=== PATIENT | male | born 1970 | race Caucasian/White ===

== ENCOUNTER 2017-04-21 11:14 | Emergency (ER) | payer MEDICAID ==
[~2017-04-21] VITALS: Wt 90.9 kg
[2017-04-21] MEDS ORDERED: ONDANSETRON (ODT) 4 MG TAB ODT STA ×2 (12:48→14:58)
[2017-04-21] MEDS ORDERED: HYDROCODONE/APAP (5/325) TAB PO ONE (13:00)
--- NOTE | 2017-04-21 14:06 | RADRPT ---
PROCEDURE: CT cervical spine without contrast CLINICAL INDICATION: Trauma . Collision during soccer. TECHNIQUE: CT scan of the cervical spine was performed . No IV contrast was administered. Jose l and sagittal reformatted images were obtained from the axial source images. Images were reviewed o n a high-resolution PACS workstation. The calculated radiation dose measures 567.43 mGy centimeters . The CTDI measures 22.32 mGy. One or more of the following dose reduction techniques were used: - Automated exposure control. - Adjustment of the mA and/or kV according to patient size . - Use of iterative reconstruction technique. COMPARISON: None available FINDINGS: There is reversal of the normal cervical lordosis. Alignment remains intact. No acute fracture or dislocation is seen. The vertebral body heights and intervertebral disk heights are all well preser fransisco. Posterior elements structures are equally unremarkable. The paraspinous soft tissues are unrem arkable. There is a small, dystrophic ossification versus ossicle between the talus and clivus. No mass, hematoma, or other soft tissue abnormality is seen. IMPRESSION: 1. Reversal of the normal cervical lordosis related to paraspinal muscle spasm or position. 2. No acute vertebral body fracture or traumatic subluxation. RPTAT: PP .Chaitanya Greenfield MD, Date Time Electronically viewed and signed by .Chaitanya Greenfield MD, MD on 04/21/2017 14:05 .d/
--- NOTE | 2017-04-21 14:07 | RADRPT ---
PROCEDURE: CT Brain without. CLINICAL INDICATION: Trauma. Soccer collision TECHNIQUE: A CT of the brain was performed utilizing axial sections from the skull base through th e vertex without contrast. The scan was reviewed in soft tissue brain and high frequency resolution bone algorithm windows. Images were reviewed on a high-resolution PACS workstation. images. The c alculated radiation dose measures 720.23 mGy centimeters. The CTDI measures 42.81 mGy. One or more of the following dose reduction techniques were used: - Automated exposure control. - Adjustment of the mA and/or kV according to patient size . - Use of iterative reconstruction technique. Images were reviewed on a high-resolution PACS workstation COMPARISON: None available FINDINGS: The ventricles and sulci are symmetric and normal in size and morphology. There is no evidence of i ntracranial hemorrhage, mass effect, edema or midline shift. No abnormal intra-axial or extra-axial fluid collections are seen. The density of the brain is normal and the weldon/white matter different iation is well preserved. Brainstem and posterior fossa structures are equally unremarkable. The o sseous structures and visualized paranasal sinuses are unremarkable. There is mild right periorbital soft tissue swelling. IMPRESSION: 1. No acute intracranial findings. 2. Mild right periorbital soft tissue swelling. RPTAT: PP .Chaitanya Greenfield MD, Date Time Electronically viewed and signed by .Chaitanya Greenfield MD, MD on 04/21/2017 14:07 .d/
--- NOTE | 2017-04-21 14:09 | ERD ---
ER Documentation Chief Complaint Date/Time DATE: 04/21/17 TIME: 14:08 Chief Complaint hit back of head during soccer game, no ko HPI This 46-year-old male who presents the emergency department today with his friend for complaints of headache and neck pain after being kneed in the back of the head during a soccer game earlier today. Patient states that he lost consciousness for short period of time. States he has a headache, dizziness, blurred vision and some nausea. Denies any previous head trauma. States he did not return to the game. ROS All systems reviewed and are negative except as per history of present illness. Medications Home Meds Active Scripts Cyclobenzaprine Hcl* (Cyclobenzaprine Hcl*) 10 Mg Tablet, 10 MG PO QHS, #7 TAB Prov:LEDY HIGUERA-C 04/21/17 Ondansetron Hcl* (Zofran*) 4 Mg Tablet, 4 MG PO Q6H for NAUSEA AND/OR VOMITING, #30 TAB Prov:LEDY HIGUERA-C 04/21/17 Acetaminophen* (Tylophen*) 500 Mg Capsule, 1 CAP PO Q6H Y for PAIN AND OR ELEVATED TEMP, #30 CAP Prov:LEDY HIGUERA-C 04/21/17 Hydrocodone/Acetaminophen (Gwinn 5-325 Tablet) 1 Each Tablet, 1 TAB PO Q6H Y for PAIN, #15 TAB Prov:LEDY HIGUERA PA-C 04/21/17 Allergies Allergies: Coded Allergies: No Known Allergy (Unverified , 04/21/17) PMhx/Soc Medical and Surgical Hx: pt denies Medical Hx, pt denies Surgical Hx Hx Alcohol Use: Yes Hx Substance Use: No Hx Tobacco Use: No Smoking Status: Never smoker Physical Exam Vitals Vital Signs Date Time Temp Pulse Resp B/P Pulse Ox O2 Delivery O2 Flow Rate FiO2 04/21/17 16:33 95.6 61 18 136/80 99 Room Air 04/21/17 11:18 97.3 74 20 130/83 99 Physical Exam Const: No acute distress Head: Large hematoma posterior aspect left side of head. No lacerations. Eyes: Normal Conjunctiva. PERRLA. EOM intact ENT: Normal External Ears, Nose and Mouth. No epistaxis. No hemotympanum. Nontender orbits. Neck: Full range of motion..~ No meningismus. Mild midline tenderness with evidence of soccer cleat kimo Resp: Clear to auscultation bilaterally Cardio: Regular rate and rhythm, no murmurs Skin: No petechiae or rashes Back: No midline or flank tenderness Neur: Awake and alert Psych: Normal Mood and Affect Results 24 hrs Current Medications Medications (Trade) Dose Ordered Sig/Khanh Route PRN Reason Start Time Stop Time Status Last Admin Dose Admin Ondansetron HCl (Zofran Odt) 4 mg ONCE STAT ODT 04/21/17 12:48 04/21/17 12:51 DC 04/21/17 13:01 Acetaminophen/ Hydrocodone Bitart (Gwinn (5/325)) 1 tab ONCE ONCE PO 04/21/17 13:00 04/21/17 13:01 DC 04/21/17 13:01 Acetaminophen (Tylenol Tab) 500 mg ONCE STAT PO 04/21/17 14:58 04/21/17 14:59 DC 04/21/17 15:03 Ondansetron HCl (Zofran Odt) 4 mg ONCE STAT ODT 04/21/17 14:58 04/21/17 14:59 DC 04/21/17 15:03 DIAGNOSTIC IMAGING REPORT Patient: CHOCO GREEN : 1970 Age: 46 Sex: M MR #: [id number] DOS: 04/21/17 0000 Ordering MD: LEDY HIGUERA PA-C Location: [facility] Room/Bed: PROCEDURE: CT cervical spine without contrast CLINICAL INDICATION: Trauma . Collision during soccer. TECHNIQUE: CT scan of the cervical spine was performed . No IV contrast was administered. Coronal and sagittal reformatted images were obtained from the axial source images. Images were reviewed on a high-resolution PACS workstation. The calculated radiation dose measures 567.43 mGy centimeters. The CTDI measures 22.32 mGy. One or more of the following dose reduction techniques were used: - Automated exposure control. - Adjustment of the mA and/or kV according to patient size . - Use of iterative reconstruction technique. COMPARISON: None available FINDINGS: There is reversal of the normal cervical lordosis. Alignment remains intact. No acute fracture or dislocation is seen. The vertebral body heights and intervertebral disk heights are all well preserved. Posterior elements structures are equally unremarkable. The paraspinous soft tissues are unremarkable. There is a small, dystrophic ossification versus ossicle between the talus and clivus. No mass, hematoma, or other soft tissue abnormality is seen. IMPRESSION: 1. Reversal of the normal cervical lordosis related to paraspinal muscle spasm or position. 2. No acute vertebral body fracture or traumatic subluxation. RPTAT: PP .Chaitanya Greenfield MD, MD Date Time Electronically viewed and signed by .Chaitanya Greenfield MD, MD on 04/21/2017 14:05 .d/ CC: LEDY HIGUERA PA-C DIAGNOSTIC IMAGING REPORT Patient: CHOCO GREEN : 1970 Age: 46 Sex: M MR #: [id number] DOS: 04/21/17 0000 Ordering MD: LEDY HIGUERA PA-C Location: [facility] Room/Bed: PROCEDURE: CT Brain without. CLINICAL INDICATION: Trauma. Soccer collision TECHNIQUE: A CT of the brain was performed utilizing axial sections from the skull base through the vertex without contrast. The scan was reviewed in soft tissue brain and high frequency resolution bone algorithm windows. Images were reviewed on a high-resolution PACS workstation. images. The calculated radiation dose measures 720.23 mGy centimeters. The CTDI measures 42.81 mGy. One or more of the following dose reduction techniques were used: - Automated exposure control. - Adjustment of the mA and/or kV according to patient size . - Use of iterative reconstruction technique. Images were reviewed on a high-resolution PACS workstation COMPARISON: None available FINDINGS: The ventricles and sulci are symmetric and normal in size and morphology. There is no evidence of intracranial hemorrhage, mass effect, edema or midline shift. No abnormal intra-axial or extra-axial fluid collections are seen. The density of the brain is normal and the weldon/white matter differentiation is well preserved. Brainstem and posterior fossa structures are equally unremarkable. The osseous structures and visualized paranasal sinuses are unremarkable. There is mild right periorbital soft tissue swelling. IMPRESSION: 1. No acute intracranial findings. 2. Mild right periorbital soft tissue swelling. RPTAT: PP .Chaitanya Greenfield MD, MD Date Time Electronically viewed and signed by .Chaitanya Greenfield MD, MD on 04/21/2017 14:07 .d/ CC: LEDY HIGUERA PA-C DIAGNOSTIC IMAGING REPORT Patient: CHOCO GREEN : 1970 Age: 46 Sex: M MR #: [id number] DOS: 04/21/17 0000 Ordering MD: LEDY HIGUERA PA-C Location: [facility] Room/Bed: PROCEDURE: CT orbits without IV contrast. CLINICAL INDICATION: Trauma. Possible right periorbital swelling on CT brain.. TECHNIQUE: CT was performed on multislice CT scanner with axial sections through the orbits without contrast. Sagittal and coronal re-formations obtained. Images were reviewed on a high-resolution PACS workstation. DLP: 367.3 mGy-cm. CTDIvol: 29.2 mGy. One or more of the following dose reduction techniques were used: Automated exposure control. Adjustment of the mA and/or kV according to patient size. Use of iterative reconstruction technique. COMPARISON: None available FINDINGS: The orbital bones are intact without evidence of fractures. The remainder of the bones of the face appear intact without evidence of fractures. The paranasal sinuses are clear.. Orbital globes and retro-orbital contents are within normal limits.. Mastoid air cells are clear.. Zygomatic arches are aligned.. Mandible and temporomandibular joints are within normal limits.. Visualized portions of the cervical spine appear intact. Soft tissues of the face are within normal limits.. No significant elvira orbital soft tissue swelling , fluid collection, or hematoma is identified. IMPRESSION: Unremarkable CT of the orbits. RPTAT: QQ .Adiel Johnson MD, MD Date Time Electronically viewed and signed by .Adiel Johnson MD, on 04/21/2017 15:51 .L/ CC: LEDY HIGUERA PA-C Procedures/MDM This a 46-year-old male who presents the emergency department today for an acute head injury and neck pain after sustaining an injury while playing in a soccer game earlier today. Given patient's physical exam and large hematoma I did feel it was necessary to obtain a head CT scan as well as cervical spine films. CT cervical spine shows reversal of the normal cervical lordosis related to paraspinal muscle spasm or position. There is no acute vertebral body fracture or traumatic subluxation. There is no mass, hematoma or other soft tissue abnormality seen Head CT shows no acute intracranial findings. There is mild right periorbital soft tissue swelling. There is no evidence of intracranial hemorrhage, mass- effect, edema or midline shift. Given the patient abnormality of periorbital soft tissue swelling on head CT I did obtain CT of the orbits to rule out a blowout fracture. CT of the orbits noncontrast was unremarkable. There was no significant periorbital soft tissue swelling, fluid collection or hematoma. Mandible and temporomandibular joints are within normal limits. Paranasal sinuses are clear. Patient was given Gwinn and Zofran here in the emergency department pain persisted he was given another dose of Tylenol and Zofran Patient symptoms at this time is consistent with acute head injury and neck injury secondary to soccer injury. Patient will be given a prescription for Gwinn, Zofran, Flexeril, Tylenol for home. He has been instructed to follow-up with a primary care physician. He was instructed in no sports participation or physical activity until cleared by primary care physician or neurology specialist. Patient, friend and daughter understood. Understood At this time the patient is stable for discharge and outpatient management. Patient should follow up with their PCP in the next 1-2 days. Patient was given a list of community resources. They may return to the emergency department sooner for any persistent or worsening of symptoms. Patient understood and agreed with the plan. Departure Diagnosis: Primary Impression: Acute head injury Encounter type: initial encounter Qualified Code: S09.90XA - Acute head injury, initial encounter Additional Impression: Neck injury Encounter type: initial encounter Qualified Code: S19.9XXA - Neck injury, initial encounter Condition: LEDY Trent PA-C Apr 21, 2017 14:09
[2017-04-21] MEDS ORDERED: ACETAMINOPHEN 500 MG TAB PO STA (14:58)
--- NOTE | 2017-04-21 15:52 | RADRPT ---
PROCEDURE: CT orbits without IV contrast. CLINICAL INDICATION: Trauma. Possible right periorbital swelling on CT brain.. TECHNIQUE: CT was performed on multislice CT scanner with axial sections through the orbits witho ut contrast. Sagittal and coronal re-formations obtained. Images were reviewed on a high-[employer] PACS workstation. DLP: 367.3 mGy-cm. CTDIvol: 29.2 mGy. One or more of the following dose reduction techniques were used: Automated exposure control. Adjustment of the mA and/or kV according to patient size. Use of iterative reconstruction technique. COMPARISON: None available FINDINGS: The orbital bones are intact without evidence of fractures. The remainder of the bones of the face appear intact without evidence of fractures. The paranasal sinuses are clear.. Orbital globes and r etro-orbital contents are within normal limits.. Mastoid air cells are clear.. Zygomatic arches are aligned.. Mandible and temporomandibular joints are within normal limits.. Visualized portions of t he cervical spine appear intact. Soft tissues of the face are within normal limits.. No significant elvira orbital soft tissue swelling, fluid collection, or hematoma is identified. IMPRESSION: Unremarkable CT of the orbits. RPTAT: QQ .Adiel Johnson MD, Date Time Electronically viewed and signed by .Adiel Johnson MD, on 04/21/2017 15:51 .L/
[2017-04-21] MEDS ORDERED: ACET500C5 PO (16:14)
[2017-04-21] MEDS ORDERED: HYDR-906 PO (16:14)
[2017-04-21] MEDS ORDERED: ONDA4TAB8 PO (16:15)
[2017-04-21] MEDS ORDERED: CYCL-319 PO (16:16)
[2017-04-21 16:33] VITALS: BP 136/80; PULSE 61; RESP 18; TEMP 95.6
== END 2017-04-21 16:35 | disposition home or self-care (01) ==
LOC: FTE 11:14
DX: S09.90XA Unspecified injury of head, initial encounter (principal); S19.9XXA Unspecified injury of neck, initial encounter; R51 Headache; W22.8XXA Striking against or struck by other objects, initial encounter; Y92.9 Unspecified place or not applicable
CPT/HCPCS: 70450; 70480; 72125; Z7502; Z7610